=== PATIENT | male | born 1955 | race Hispanic/Latino ===

== ENCOUNTER 2018-07-10 08:57 | Emergency (ER) | payer OTHER ==
[2018-07-10] MEDS ORDERED: TETANUS/DIPHTHERIA TOXOID [ADULT] 0.5 ML VIAL IM ONE (09:05)
[2018-07-10] MEDS ORDERED: LIDOCAINE HCL MPF 1% 5ML VIAL ONE (09:05)
== END 2018-07-10 09:56 | disposition home or self-care (01) ==
LOC: EDH 08:57
DX: S61.212A Laceration without foreign body of right middle finger without damage to nail, initial encounter (principal); W22.8XXA Striking against or struck by other objects, initial encounter; Y93.89 Activity, other specified; Y92.89 Other specified places as the place of occurrence of the external cause; Y99.8 Other external cause status
CPT/HCPCS: 12001; 90471; 90714; 99283; J3490

== ENCOUNTER 2019-12-06 05:38 | Inpatient (IN) | payer OTHER ==
[~2019-12-06] VITALS: Ht 182.9 cm; Wt 89.6 kg
[2019-12-06] MEDS ORDERED: ASPIRIN 325 MG TABLET ONE (06:01)
[2019-12-06 06:02] LABS: BASOPHILS % (AUTO) 0.3 % (0.0-5.0); EOSINOPHILS % (AUTO) 2.5 % (0.0-8.0); HEMATOCRIT 46.4 % (42-54); LYMPHOCYTES % (AUTO) 23.6 % (21.0-51.0); MEAN CORPUSCULAR HEMOGLOBIN 29.3 pg (27.0-33.0); MEAN CORPUSCULAR HGB CONC 34.3 g/dL (32.0-36.0); MEAN CORPUSCULAR VOLUME 85.5 fL (79-99); MONOCYTES % (AUTO) 6.3 % (3.0-13.0); NEUTROPHILS % (AUTO) 66.9 % (40.0-77.0); PLATELET COUNT (AUTO) 177 K/uL (130-400); RED BLOOD CELL COUNT(AUTO) 5.43 MIL/uL (4.50-6.20); RED CELL DISTRIBUTION WIDTH 12.8 % (11.0-15.5); WHITE BLOOD COUNT (AUTO) 10.7 K/uL (4.8-10.8)
[2019-12-06 06:07] LABS: PARTIAL THROMBOPLASTIN TIME 23.2 SEC (26.3-35.5); PROTHROMBIN TIME 10.5 SEC (9.6-11.6)
[2019-12-06 06:10] LABS: CREATININE 0.9 mg/dL (0.5-1.5); POTASSIUM 4.5 mmol/L (3.5-5.1)
[2019-12-06 06:15] LABS: ALBUMIN 4.1 g/dL (3.5-5.0); BILIRUBIN,TOTAL 1.1 mg/dL (0.2-1.0); TOTAL PROTEIN, SERUM 7.6 g/dL (6.0-8.3)
[2019-12-06] MEDS ORDERED: NITROGLYCERIN 1GM/1 INCH PACKET TD ONE (06:20)
[2019-12-06] MEDS ORDERED: LACTULOSE 20 GM/30 ML UDCUP PO PRN (07:00)
[2019-12-06] MEDS ORDERED: HYDRALAZINE HCL 20 MG/ML VIAL IV PRN (07:00)
[2019-12-06] MEDS ORDERED: ACETAMINOPHEN 325 MG TAB PO PRN ×2 (07:00)
[2019-12-06] MEDS: NITROGLYCERIN 1GM/1 INCH PACKET TD SCH ×3 (07:00→23:42)
[2019-12-06] MEDS: INSULIN HUMULIN R 100 UNIT/ML 3ML SQ SCH ×4 (07:30→21:10)
[2019-12-06] MEDS ORDERED: ENOXAPARIN SODIUM 40 MG/0.4 ML SYRINGE SQ ONE (08:26)
[2019-12-06] MEDS ORDERED: METOPROLOL TARTRATE 25 MG TAB ONE (08:26)
[2019-12-06] MEDS ORDERED: FAMOTIDINE 20MG TAB 20 MG TAB ONE (08:26)
[2019-12-06] MEDS: METOPROLOL TARTRATE 25 MG TAB PO SCH ×2 (09:00→21:10)
[2019-12-06] MEDS: ENOXAPARIN SODIUM 40 MG/0.4 ML SYRINGE SQ SCH (09:00)
[2019-12-06] MEDS: ASPIRIN 325 MG TABLET PO SCH (09:00)
[2019-12-06] MEDS: FAMOTIDINE 20MG TAB 20 MG TAB PO SCH ×2 (09:00→21:10)
[2019-12-06 09:08] LABS: HEMOGLOBIN A1C 7.7 % (4.0-6.0)
[2019-12-06 09:18] LABS: THYROID STIMULATING HORMONE 2.83 uIU/mL (0.36-3.74)
[2019-12-06 11:19] VITALS: BP 136/67
[2019-12-06 12:00] VITALS: BP 136/67
[2019-12-06 16:00] VITALS: BP 115/64
[2019-12-06] MEDS ORDERED: VANCOMYCIN PROTOCOL PER PHARMACY IV SCH (17:15)
[2019-12-06] MEDS ORDERED: COMPOUND IV REFRIGERATED 1 EACH IVSOLN MISC PRN (17:30)
[2019-12-06] MEDS ORDERED: SODIUM CHLORIDE 0.9% 500ML 500 ML IV ONE (18:11)
[2019-12-06] MEDS: CEFTRIAXONE SODIUM 1 GM IVP SCH (18:13)
[2019-12-06 18:33] LABS: CRP QUANTITATIVE 32.2 mg/L (0.00-9.0)
[2019-12-06] MEDS: VANCOMYCIN 1.5 GM in SODIUM CHLORIDE 0.9% 250 ML IV SCH (18:47)
[2019-12-06 19:32] LABS: APPEARANCE,URINE Clear (CLEAR); BILIRUBIN,URINE Moderate (NEGATIVE); COLOR,URINE Dark Yellow (YELLOW); GLUCOSE, URINE (UA) >=1000 mg/dL (NEGATIVE); KETONES,URINE Trace mg/dL (NEGATIVE); LEUKOCYTE ESTERASE ,URINE Negative (NEGATIVE); NITRATE,URINE Negative (NEGATIVE); OCCULT BLOOD,URINE Negative (NEGATIVE); PH,URINE 6.5 (5.0-8.0); PROTEIN,URINE Negative (NEGATIVE); UROBILINOGEN,URINE >=8.0 mg/dL (0.2-1.0)
[2019-12-06 19:46] LABS: BACTERIA,URINE Rare /HPF (None Seen); RBC,URINE None Seen /HPF (0-1); WBC,URINE None Seen /HPF (0-1)
[2019-12-06 20:00] VITALS: BP 122/66
[2019-12-06 23:47] VITALS: BP 120/69
[2019-12-07 04:00] VITALS: BP 110/62
[2019-12-07] MEDS: CEFTRIAXONE SODIUM 1 GM IVP SCH ×2 (05:13→18:59)
[2019-12-07] MEDS: VANCOMYCIN 1.25 GM in SODIUM CHLORIDE 0.9% 250 ML IV SCH ×2 (05:13→18:59)
[2019-12-07 05:28] LABS: BASOPHILS % (AUTO) 0.1 % (0.0-5.0); EOSINOPHILS % (AUTO) 0.3 % (0.0-8.0); HEMATOCRIT 39.3 % (42-54); LYMPHOCYTES % (AUTO) 4.7 % (21.0-51.0); MEAN CORPUSCULAR HEMOGLOBIN 29.8 pg (27.0-33.0); MEAN CORPUSCULAR HGB CONC 35.1 g/dL (32.0-36.0); MEAN CORPUSCULAR VOLUME 84.9 fL (79-99); MONOCYTES % (AUTO) 7.5 % (3.0-13.0); NEUTROPHILS % (AUTO) 86.7 % (40.0-77.0); PLATELET COUNT (AUTO) 144 K/uL (130-400); RED BLOOD CELL COUNT(AUTO) 4.63 MIL/uL (4.50-6.20); RED CELL DISTRIBUTION WIDTH 13.2 % (11.0-15.5); WHITE BLOOD COUNT (AUTO) 7.2 K/uL (4.8-10.8)
[2019-12-07 05:44] LABS: CREATININE 1.2 mg/dL (0.5-1.5); POTASSIUM 4.2 mmol/L (3.5-5.1)
[2019-12-07] MEDS: NITROGLYCERIN 1GM/1 INCH PACKET TD SCH (06:11)
[2019-12-07] MEDS: INSULIN HUMULIN R 100 UNIT/ML 3ML SQ SCH ×4 (06:13→20:44)
[2019-12-07 06:55] LABS: ALBUMIN 3.3 g/dL (3.5-5.0); BILIRUBIN,DIRECT 1.8 mg/dL (0.0-0.3); BILIRUBIN,TOTAL 2.5 mg/dL (0.2-1.0); TOTAL PROTEIN, SERUM 6.6 g/dL (6.0-8.3)
[2019-12-07 07:30] VITALS: BP_SYST 112; BP_SYST 129; BP_DIAS 63; BP_DIAS 67
[2019-12-07] MEDS: FAMOTIDINE 20MG TAB 20 MG TAB PO SCH ×2 (09:45→20:44)
[2019-12-07] MEDS: ASPIRIN 325 MG TABLET PO SCH (09:45)
[2019-12-07] MEDS: METOPROLOL TARTRATE 25 MG TAB PO SCH ×2 (09:45→20:44)
[2019-12-07] MEDS: ENOXAPARIN SODIUM 40 MG/0.4 ML SYRINGE SQ SCH (09:47)
[2019-12-07 11:00] VITALS: BP 119/68
[2019-12-07 11:08] LABS: ALBUMIN 3.2 g/dL (3.5-5.0); CREATININE 1.2 mg/dL (0.5-1.5); POTASSIUM 4.4 mmol/L (3.5-5.1); TOTAL PROTEIN, SERUM 6.6 g/dL (6.0-8.3)
[2019-12-07 16:00] VITALS: BP 132/74
[2019-12-07] MEDS: VANCOMYCIN 1.5 GM in SODIUM CHLORIDE 0.9% 250 ML IV SCH (18:15)
[2019-12-07 20:00] VITALS: BP 137/73
[2019-12-08] VITALS (7 sets, daily range): BP systolic 120–153; BP diastolic 73–83
[2019-12-08] MEDS: CEFTRIAXONE SODIUM 1 GM IVP SCH ×2 (05:04→16:45)
[2019-12-08 05:16] LABS: BASOPHILS % (AUTO) 0.4 % (0.0-5.0); EOSINOPHILS % (AUTO) 9.1 % (0.0-8.0); HEMATOCRIT 42.3 % (42-54); LYMPHOCYTES % (AUTO) 14.1 % (21.0-51.0); MEAN CORPUSCULAR HEMOGLOBIN 29.2 pg (27.0-33.0); MEAN CORPUSCULAR HGB CONC 33.6 g/dL (32.0-36.0); MEAN CORPUSCULAR VOLUME 86.9 fL (79-99); MONOCYTES % (AUTO) 8.9 % (3.0-13.0); NEUTROPHILS % (AUTO) 67.3 % (40.0-77.0); PLATELET COUNT (AUTO) 141 K/uL (130-400); RED BLOOD CELL COUNT(AUTO) 4.87 MIL/uL (4.50-6.20); RED CELL DISTRIBUTION WIDTH 13.5 % (11.0-15.5); WHITE BLOOD COUNT (AUTO) 5.6 K/uL (4.8-10.8)
[2019-12-08 05:59] LABS: BILIRUBIN,TOTAL 1.2 mg/dL (0.2-1.0); CREATININE 1.2 mg/dL (0.5-1.5); POTASSIUM 3.9 mmol/L (3.5-5.1); TOTAL PROTEIN, SERUM 6.7 g/dL (6.0-8.3)
[2019-12-08] MEDS: INSULIN HUMULIN R 100 UNIT/ML 3ML SQ SCH ×4 (06:19→20:53)
[2019-12-08] MEDS: VANCOMYCIN 1GM+NS 250ML 250 ML IV SCH ×3 (07:30→22:16)
[2019-12-08] MEDS: METOPROLOL TARTRATE 25 MG TAB PO SCH ×2 (08:34→20:53)
[2019-12-08] MEDS: ASPIRIN 81 MG EC TAB PO SCH (08:34)
[2019-12-08] MEDS: ENOXAPARIN SODIUM 40 MG/0.4 ML SYRINGE SQ SCH (08:34)
[2019-12-08] MEDS: FAMOTIDINE 20MG TAB 20 MG TAB PO SCH ×2 (08:34→20:53)
--- NOTE | 2019-12-08 10:52 | NUR ---
CALLED DR. MONCADA OFFICE FOR CONSULT SPOKE WITH JEAN PAUL SIGNAL HELPER. PT INFO GIVEN. WILL CONTINUE TO FOLLOW.
[2019-12-08] MEDS ORDERED: IOHEXOL 350 MG/ML 100ML INFUS..BTL IV ONE (13:13)
--- NOTE | 2019-12-08 16:30 | NUR ---
INITIAL MET W PATIENT AND SPOUE AT BEDSIDE- PT ACTIVE, NO DME, DRIVES, UNINSURED, NO CONNECTION WITH ANY CLINIC BECAUSE HE STATES HE NEVER GETS SICK. STATES HAS DM, CHECKS SUGAR EVERY DAY. BUYS STRIPS AT [facility]- DECLINED INFORMATION ABOUT [facility] SELF [facility]NAGEMENT CLINIC OR [facility]. CM TO FOLLOW Addendum: 12/08/19 at 1950 by HIPOLITO RICE RN CM Amended: Links added.
--- NOTE | 2019-12-08 20:30 | NUR ---
BACK Pt back into room from [facility] scan.
[2019-12-09] VITALS (18 sets, daily range): BP systolic 123–150; BP diastolic 68–93
--- NOTE | 2019-12-09 01:00 | NUR ---
NPO Pt remains Npo after midnight for EUS.
[2019-12-09 05:21] LABS: INR 0.97 (0.85-1.15); PARTIAL THROMBOPLASTIN TIME 26.4 SEC (26.3-35.5); PROTHROMBIN TIME 10.2 SEC (9.6-11.6)
[2019-12-09] MEDS: CEFTRIAXONE SODIUM 1 GM IVP SCH ×2 (05:46→19:55)
[2019-12-09] MEDS: INSULIN HUMULIN R 100 UNIT/ML 3ML SQ SCH ×3 (06:00→21:21)
[2019-12-09] MEDS: VANCOMYCIN 1GM+NS 250ML 250 ML IV SCH ×3 (06:25→22:37)
[2019-12-09] MEDS: ENOXAPARIN SODIUM 40 MG/0.4 ML SYRINGE SQ SCH (09:00)
[2019-12-09] MEDS: ASPIRIN 81 MG EC TAB PO SCH (09:00)
[2019-12-09] MEDS ORDERED: LIDOCAINE HCL 2% 20ML ONE (12:40)
[2019-12-09] MEDS ORDERED: PROPOFOL 10 MG/ML 20ML VIAL IV ONE (12:40)
[2019-12-09] MEDS: FAMOTIDINE 20MG TAB 20 MG TAB PO SCH ×2 (14:44→19:55)
[2019-12-09] MEDS: METOPROLOL TARTRATE 25 MG TAB PO SCH ×2 (14:44→19:55)
--- NOTE | 2019-12-09 15:07 | NUR ---
PER DR OSORIO POST OP ORFDERS TO CONSULT SURGERY FOR POSS LAPCHOLE.. PER [employer] ,DIRECTOR NO ONE ONCALL FOR SURGERY AND WILL HAVE TO CALL SURGERY LIST TO SEE WHO CAN TAKE CONSULT.. ATTEMPTED TO HAVE [facility] ,CALL BACK FROM [facility] FROM [facility] OFFICE, ASKED IF PATIENT HAS INSURANCE ,PATIENT CURRENTLY ON SELF HELP EDDIE . PER SURESH AVILEZ WILL NOT TAKE CASE .
--- NOTE | 2019-12-09 15:31 | NUR ---
CALL BACK FROM [facility] FROM DR BARTLETT OFFICE , PER NOT AVAILABLE TO TAKE CONSULT
--- NOTE | 2019-12-09 15:35 | NUR ---
CALLED TO DR LUNA OFFICE REGARDING TAKING CONSULT . PER OFFICE DR LUNA [place] AT THIS TIME ..
--- NOTE | 2019-12-09 16:09 | NUR ---
NOTIFIED DR OSORIO ON NO SURGERY CONSULT AVAILABLE AT THIS TIME . PER MD NOT EMERGENT CAN FOLLOW UP OUPT .NOTIFIED PRIMARY ,ALEC ENCARNACION .. UPGRADE TO GI SOFT FOR AM AND DC PLAN FOR TOMORROW MORNING IF TOLERATES FOOD
--- NOTE | 2019-12-09 19:55 | NUR ---
MEDS SHIFT ASSESSMENT DONE, PLEASE REFER TO CHART. DUE MEDS ADMINISTERED, TOLERATED WELL. KEPT RESTED AND COMFORTABLE. CALL LIGHT WITHIN REACH. WILL MONITOR PT. Addendum: 12/10/19 at 0042 by LUCIA BATES RN RN Amended: Links added.
--- NOTE | 2019-12-09 21:37 | NUR ---
VANCO VANCO RESULTS FAXED TO [facility], SPOKE WITH PHARMACIST FOR VANCO DOSING. WILL MEDICATE PT.
[2019-12-10] VITALS: BP 143/76
--- NOTE | 2019-12-10 02:00 | NUR ---
ROUNDS PT RESTING WELL, FAIRLY ASLEEP WITH RESPIRATIONS EVEN AND UNLABORED. KEPT UNDISTURBED FOR NOW. WILL MONITOR PT. CALL LIGHT WITHIN REACH.
[2019-12-10 04:00] VITALS: BP 135/74
[2019-12-10 04:51] LABS: BASOPHILS % (AUTO) 0.3 % (0.0-5.0); EOSINOPHILS % (AUTO) 10.8 % (0.0-8.0); HEMATOCRIT 41.4 % (42-54); LYMPHOCYTES % (AUTO) 13.7 % (21.0-51.0); MEAN CORPUSCULAR HEMOGLOBIN 29.2 pg (27.0-33.0); MEAN CORPUSCULAR HGB CONC 33.6 g/dL (32.0-36.0); MONOCYTES % (AUTO) 11.1 % (3.0-13.0); NEUTROPHILS % (AUTO) 63.8 % (40.0-77.0); PLATELET COUNT (AUTO) 156 K/uL (130-400); RED BLOOD CELL COUNT(AUTO) 4.76 MIL/uL (4.50-6.20); RED CELL DISTRIBUTION WIDTH 13.5 % (11.0-15.5); WHITE BLOOD COUNT (AUTO) 6.3 K/uL (4.8-10.8)
[2019-12-10] MEDS: CEFTRIAXONE SODIUM 1 GM IVP SCH ×2 (05:20→17:39)
[2019-12-10] MEDS: VANCOMYCIN 1GM+NS 250ML 250 ML IV SCH ×2 (05:21→15:21)
--- NOTE | 2019-12-10 05:21 | NUR ---
MEDS PT RESTING WELL, STILL FAIRLY ASLEEP. NO DISTRESS NOTED. DUE MEDS ADMINISTERED. KEPT COMFORTABLE. FOR MORE CARE.
[2019-12-10 05:34] LABS: BILIRUBIN,TOTAL 0.7 mg/dL (0.2-1.0); CREATININE 1.1 mg/dL (0.5-1.5); POTASSIUM 4.2 mmol/L (3.5-5.1); TOTAL PROTEIN, SERUM 6.7 g/dL (6.0-8.3)
[2019-12-10] MEDS: INSULIN HUMULIN R 100 UNIT/ML 3ML SQ SCH ×3 (05:55→16:30)
[2019-12-10 07:30] VITALS: BP 138/74
[2019-12-10] MEDS: ENOXAPARIN SODIUM 40 MG/0.4 ML SYRINGE SQ SCH (08:32)
[2019-12-10] MEDS: ASPIRIN 81 MG EC TAB PO SCH (08:32)
[2019-12-10] MEDS: FAMOTIDINE 20MG TAB 20 MG TAB PO SCH (08:32)
[2019-12-10] MEDS: METOPROLOL TARTRATE 25 MG TAB PO SCH (08:33)
[2019-12-10 11:00] VITALS: BP 152/85
[2019-12-10 16:00] VITALS: BP 147/68
== END 2019-12-10 18:25 | disposition home or self-care (01) | DRG 206 ==
LOC: EDH 05:38 → EDHIP 06:59 → OBSVTOIN 06:59 → 4DH 11:16
PROVIDERS: ADMIT Internal Medicine; ATTEND Internal Medicine
PROC: 0DJ08ZZ Inspection of Upper Intestinal Tract, Via Natural or Artificial Opening Endoscopic (ICD-10-PCS; principal; 2019-12-09)
DX: M94.0 Chondrocostal junction syndrome [Tietze] (principal); I10 Essential (primary) hypertension; E11.9 Type 2 diabetes mellitus without complications; R79.89 Other specified abnormal findings of blood chemistry; K76.0 Fatty (change of) liver, not elsewhere classified; K83.8 Other specified diseases of biliary tract; K80.20 Calculus of gallbladder without cholecystitis without obstruction; K31.89 Other diseases of stomach and duodenum; K86.9 Disease of pancreas, unspecified
CPT/HCPCS: 36415; 43237; 71045; 71275; 74174; 74181; 76700; 78227; 80048; 80053; 80061; 80076; 80202; 81001; 82550; 82948; 83036; 83880; 84145; 84443; 84484; 85025; 85610; 85651; 85730; 86140; 87040; 87088; 87486; 87581; 87633; 87798; 87804; 93005; 93306; 93356; A9537; G0378; J0696; J1650; J1815; J2704; J3370; J3490; J7030; J7040; Q9967